=== PATIENT | male | born 1955 | race Caucasian/White ===

== ENCOUNTER → 2023-09-05 14:37 | Outpatient (REF) | payer MEDICARE, OTHER, SELFPAY | LOC: REG 14:37 | PROVIDERS: ATTENDING PHYSICIAN Family Medicine | DX: J10.1 Influenza due to other identified influenza virus with other respiratory manifestations (principal); R05.9 Cough, unspecified; R09.89 Other specified symptoms and signs involving the circulatory and respiratory systems | CPT/HCPCS: 71046 ==

== ENCOUNTER → 2023-10-28 06:29 | Day surgery (SDC) | payer MEDICARE, OTHER, SELFPAY ==
[2023-10-28 07:25] LABS: Glucose - Point of Care 141 mg/dl (70-99)
== END ==
LOC: GI 06:29
PROVIDERS: ATTENDING PHYSICIAN Specialist
DX: Z12.11 Encounter for screening for malignant neoplasm of colon (principal); D12.0 Benign neoplasm of cecum; D12.2 Benign neoplasm of ascending colon; D12.4 Benign neoplasm of descending colon; K63.5 Polyp of colon; K57.30 Diverticulosis of large intestine without perforation or abscess without bleeding; K56.2 Volvulus; Z86.010 Personal history of colon polyps; Z80.0 Family history of malignant neoplasm of digestive organs
CPT/HCPCS: 45385; 45380; 88305; 82962

== ENCOUNTER → 2023-11-06 10:03 | Outpatient (REF) | payer MEDICARE, OTHER, SELFPAY | LOC: DHCBS HW 10:03 | PROVIDERS: ATTENDING PHYSICIAN Internal Medicine Cardiovascular Disease; FAMILY PHYSICIAN Family Medicine Geriatric Medicine | DX: R06.09 Other forms of dyspnea (principal) | CPT/HCPCS: 93306 ==